=== PATIENT | male | born 1990 | race Caucasian/White ===

== ENCOUNTER 2017-05-16 20:24 | Emergency (ER) | payer OTHER ==
[~2017-05-16] VITALS: Ht 172.7 cm; Wt 81.8 kg
[2017-05-16 20:31] VITALS: BP 139/77; TEMP 97.8
[2017-05-16] MEDS ORDERED: FLEXERIL 1010 MG/TAB PO (23:18)
[2017-05-16 23:26] VITALS: PULSE 69
== END 2017-05-16 23:26 | disposition home or self-care (01) ==
LOC: COL.ER 20:24
DX: M26.622 Arthralgia of left temporomandibular joint (principal); F17.210 Nicotine dependence, cigarettes, uncomplicated

== ENCOUNTER 2018-06-07 10:19 | Emergency (ER) | payer OTHER ==
[~2018-06-07] VITALS: Ht 172.7 cm; Wt 81.8 kg
[~2018-06-07 10:19] MED LIST: FLEXERIL 1010 MG/TAB PO
[2018-06-07 10:31] VITALS: TEMP 97.6
[2018-06-07 12:04] VITALS: BP 126/88; PULSE 84
== END 2018-06-07 12:05 | disposition home or self-care (01) ==
LOC: COL.ER 10:19
DX: T75.4XXA Electrocution, initial encounter (principal); M79.601 Pain in right arm